=== PATIENT | male | born 1950 | race Caucasian/White ===

== ENCOUNTER 2017-03-24 14:00 | Inpatient (IN) | payer MEDICARE, OTHER ==
[2017-04-01] MEDS ORDERED: FAMOTIDINE 20MG TABLET PO ONE (06:00)
[2017-04-01] MEDS ORDERED: VANCOMYCIN HCL 1,000 MG in 0.9 % SODIUM CHLORIDE 250ML 250 ML IVPB ONE (06:00)
[2017-04-01] MEDS ORDERED: ACETAMINOPHEN 1,000 MG/100 ML BTL IV ONE (06:00)
[2017-04-01] MEDS ORDERED: MECLIZINE 25 MG TABLET PO ONE (06:00)
[2017-04-01] MEDS ORDERED: CEFAZOLIN 2 Gram 2 GM/50 ML BAG IVPB ONE (06:00)
[2017-04-01] MEDS ORDERED: METOCLOPRAMIDE 10 MG TABLET PO ONE (06:00)
[2017-04-01 09:19] LABS: HEMATOCRIT 49.3 % (42.0-52.0); HEMOGLOBIN 16.6 gm/dl (14.0-18.0); MEAN CORPUSCULAR HGB CONC 33.7 g/dl (32-36); MEAN PLATELET VOLUME 9.5 fl (7.4-10.4); PLATELET COUNT 267 K/uL (130-400); RED BLOOD COUNT 5.73 M/uL (4.40-5.70); RED CELL DISTRIBUTION WIDTH 15.3 % (11.5-14.5); WHITE BLOOD COUNT W/O DIFF 13.2 K/uL (4.2-12.2)
[2017-04-01 09:21] LABS: MEAN CORPUSCULAR HEMOGLOBIN 28.9 pg (27-33)
[2017-04-01 10:22] LABS: ABO GROUP A; ANTIBODY SCREEN NEGATIVE (NEGATIVE); RH TYPE POSITIVE
[2017-04-01] MEDS ORDERED: ACETAMINOPHEN W/ CODEINE 300MG/60MG TABLET PO PRN ×2 (13:12)
[2017-04-01] MEDS ORDERED: HYDROCODONE/APAP 10/325 TABLET PO PRN (13:12)
[2017-04-01] MEDS ORDERED: ONDANSETRON HCL IV 4 MG/2 ML VIAL IVP PRN (13:12)
[2017-04-01] MEDS ORDERED: NALOXONE 0.4 MG/1 ML VIAL IVP PRN (13:12)
[2017-04-01] MEDS ORDERED: ZOLPIDEM TARTRATE 5 MG TABLET PO PRN (13:12)
[2017-04-01] MEDS ORDERED: BISACODYL 10 MG SUPP RC PRN (13:12)
[2017-04-01] MEDS ORDERED: HYDROMORPHONE HCL 1 MG/ML CPJ IM PRN (13:12)
[2017-04-01] MEDS ORDERED: AL HYDROX/MAG HYDROX 30ML UD PO PRN (13:12)
[2017-04-01] MEDS ORDERED: ACETAMINOPHEN 325 MG TAB PO PRN (13:12)
[2017-04-01] MEDS ORDERED: DIPHENHYDRAMINE HCL 25 MG CAPSULE PO PRN (13:12)
[2017-04-01] MEDS ORDERED: KETOROLAC 30 MG/ML VIAL IVP PRN ×2 (13:12)
[2017-04-01] MEDS ORDERED: MAGNESIUM HYDROXIDE 30 ML UDC PO PRN (13:12)
[2017-04-01] MEDS ORDERED: HYDROMORPHONE HCL 2 MG/ML VIAL IM PRN (13:12)
[2017-04-01] MEDS ORDERED: TRANEXAMIC ACID 1,000 MG/10 ML ML IV ONE (15:11)
[2017-04-01] MEDS ORDERED: BUPIVACAINE 0.5% W/EPI MPF 30 ML VIAL IVP ONE (15:11)
[2017-04-01] MEDS ORDERED: MIDAZOLAM HCL 2MG/2ML VIAL IV ONE (15:19)
[2017-04-01] MEDS ORDERED: LIDOCAINE 2% MDV (20MG/ML) 20ML VIAL IV ONE (15:19)
[2017-04-01] MEDS ORDERED: FENTANYL PF 100MCG/2ML VIAL IV ONE (15:19)
[2017-04-01] MEDS ORDERED: DIPHENHYDRAMINE HCL IV 50 MG/ML VIAL IVP ONE (15:19)
[2017-04-01] MEDS ORDERED: PROPOFOL 10 MG/ML VIAL IV ONE (15:19)
[2017-04-01] MEDS ORDERED: EPHEDRINE SULFATE 50 MG/ML ML IV ONE (15:19)
[2017-04-01] MEDS: HYDROMORPHONE HCL 1 MG/ML CPJ IM PRN ×2 (16:17→19:43)
[2017-04-01] MEDS: POTASSIUM CHLORIDE/D5-0.9%NACL 20 MEQ/1,000 ML BAG IV SCH (16:23)
--- NOTE | 2017-04-01 16:23 | Rehab Evaluation ---
Patient Information - Patient Information Diagnosis: R knee OA Ordered Treatment: PT Evaluate and Treat Status: Initial Evaluation Surgery: Yes (R TKA) Date of Surgery: 04/01/17 Past Medical/Surgical Hx: PAST MEDICAL/SURGICAL HISTORY Past Surgical History left total knee replaced 2015; tonsillectomy; right carpal tunnel sx; colonoscopies. 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 The patient's home has 2 stairs at the enterance with one railing. The patient reports his bathroom has a regular tub/chair combination with a grab bar and a standard toilet with a grab bar. The patient has a 2 wheeled walker and a standard cane. The patient plans to go to a Rehab facility in [place] upon discharge from [facility].) Social History: Detail (The patient has a supportive spouse.) Precautions: [place], Other (WBAT on the R LE.) - Time With Patient Total Time Spent With Patient (Min): 25 Treatment Procedures: Detail (PT initial evaluation, gait training.) Subjective Information - Subjective Information Per Patient (The patient complained of an aching pain in R knee. The patient's pain did increase after ambulating.) Objective Data - Mental Status Patient Orientation: Oriented x3 - Visual Perception Appears within normal limits for therapeutic activities - ROM Not within normal limits (The patient's R knee AROM was not formally assessed secondary to pain complaints.) - Strength/Tone Not within normal limits (The patient's UE strength was not formally tested however patient's strength was functional. The patient's L LE strength was 4+ to 5/5. The patient's R LE strength was not tested secondary to status post surgery.) - Coordination Appears within normal limits for therapeutic activities - Bed Mobility Needs Assist (The patient was independent with supine to sit with use of trapeze , the patient required minimal PA of 1 to lift R LE with sit to supine. The patient was independent with scooting up in bed with use of trapeze.) - Transfers Independent (The patient was independent with sit to and from stand transfer.) - Balance Balance Sitting: Good Balance Standing: Fair (The patient required wheeled walker for support.) - Sensation Intact - Gait Detail (The patient ambulated with wheeled walker WBAT on the R LE with CG of 1 a distance of 30 feet x 1.) Therapy Assessment - Therapy Assessment Detail (The patient required CG for safety only for ambulation and required minimal assistance to lift R LE with sit to supine transfer. Feel the patient will progress well with mobility.) Problem List - Problem List Physical Therapy Problem List: Detail (1) Decreased R knee AROM 2) Decreased R LE strength 3) Assistance with bed mobility 4) Limited ambulation distance with wheeled walker and CG for safety) Goals - Goals Physical Therapy Goals: 1) The patient will ambulate independently with wheeled walker 150 feet WBAT on the R LE. 2) The patient will ambulate with supervision on 2 to 3 steps with use of railing. 3) The patient will be independent with bed mobility and all transfers. 4) The patient will be independent with HEP of LE strengthening and knee ROM exercises. Prognosis - Prognosis Good Plan - Plan Physical Therapy Plan: PT twice daily until inpatient goals are completed for gait training, transfer training, bed mobility and LE strengthening and ROM exercises.
[2017-04-01] MEDS: CEFAZOLIN 2 Gram 2 GM/50 ML BAG IVPB SCH (18:00)
[2017-04-01] MEDS: HYDROCODONE/APAP 10/325 TABLET PO PRN ×2 (18:02→21:59)
[2017-04-01] MEDS: DOCUSATE SODIUM 100 MG CAPSULE PO SCH (21:58)
[2017-04-02] MEDS: HYDROMORPHONE HCL 1 MG/ML CPJ IM PRN ×2 (00:18→22:01)
[2017-04-02] MEDS: POTASSIUM CHLORIDE/D5-0.9%NACL 20 MEQ/1,000 ML BAG IV SCH ×2 (00:23→13:26)
[2017-04-02] MEDS: HYDROCODONE/APAP 10/325 TABLET PO PRN ×5 (02:18→20:39)
[2017-04-02] MEDS: CEFAZOLIN 2 Gram 2 GM/50 ML BAG IVPB SCH ×2 (02:20→10:05)
[2017-04-02 06:43] LABS: HEMATOCRIT 45.4 % (42.0-52.0)
[2017-04-02 06:52] LABS: ANION GAP 9.5 (7-16); BLOOD UREA NITROGEN 17 mg/dL (9-20); CARBON DIOXIDE 30.5 mmol/L (22-30); CREATININE 0.9 mg/dL (0.66-1.25); EST GLOMERULAR FILTRATION RATE > 60 ml/min; GLUCOSE,RANDOM 179 mg/dL (70-110)
[2017-04-02] MEDS: DOCUSATE SODIUM 100 MG CAPSULE PO SCH ×2 (09:14→22:01)
[2017-04-02] MEDS: FERROUS SULFATE 325 MG TAB PO SCH (09:15)
[2017-04-02] MEDS: ASPIRIN 81 MG TABEC PO SCH (09:15)
[2017-04-02] MEDS: PATIENT OWN MED: SIMVASTATIN 40 MG PO SCH (09:16)
[2017-04-02] MEDS: PATIENT OWN MED: HYDROCHLOROTHIAZIDE 25 MG PO SCH (09:16)
[2017-04-02] MEDS: PATIENT OWN MED: METOPROLOL ER 100 MG PO SCH (09:16)
[2017-04-02] MEDS: RIVAROXABAN 10 MG TABLET PO SCH (09:17)
--- NOTE | 2017-04-02 10:45 | Rehab Evaluation ---
Patient Information - Patient Information Diagnosis: R knee OA Ordered Treatment: OT Evaluate and Treat Status: Initial Evaluation Surgery: Yes (R TKA) Date of Surgery: 04/01/17 Past Medical/Surgical Hx: PAST MEDICAL/SURGICAL HISTORY Past Surgical History left total knee replaced 2015; tonsillectomy; right carpal tunnel sx; colonoscopies. 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 Hx of Neuromuscular Disease Yes: left sided bells palsy-left side deficits PMH - GI Hx Gastrointestinal Disorders Yes PMH - Hx Genitourinary Disorders No PMH - Endocrine Hx Endocrine Disorders No Hx Diabetes No Hx Thyroid Disease No PMH - Musculoskeletal Hx Musculoskeletal Disorders Yes Hx Arthritis Yes: hands, ankles,knees,elbows PMH - Psych Hx Psychiatric Problems No PMH - Hematology/Oncology Hx Hematology/Oncology No Disorders Hx Blood Transfusion Reaction No Premorbid Status: Detail (Patient lives with spouse in a 1 story home with a basement, however the patient plans to live on the first floor. The patient's home has 2 stairs at the entrance with one railing. The patient reports his bathroom has a tub/shower combination with a removable grab bar and a standard toilet with a grab bar. He usually stands to shower. The patient has a 2 wheeled walker, straight cane, channel installer and commode which he doesn't use. Prior to surgery, he reports being Ind with all self cares, using the vacuum, loading/ unloading the mascara molder and grilling. The patient plans to go to a Rehab facility in [place] upon discharge from [facility].) Social History: Detail (The patient has a supportive spouse.) Precautions: [place], Other (WBAT on the R LE.) - Time With Patient Total Time Spent With Patient (Min): 35 Treatment Procedures: Detail (OT eval low complexity) Subjective Information - Subjective Information Per Patient Objective Data - Pain Pain Present: Yes (4/10 right knee pain) - Mental Status Patient Orientation: Oriented x3 - Visual Perception Appears within normal limits for therapeutic activities - ROM Within normal limits (Héctor UE AROM WNL) - Strength/Tone Within normal limits (Héctor UE MMT WNL) - Coordination Appears within normal limits for therapeutic activities - Bed Mobility Needs Assist (Pt reports he uses his cane to lift his right leg into bed, he required assist as he does not have his cane with him.) - Transfers Independent (Ind with sit to stand.) - Balance Balance Sitting: Good Balance Standing: Good - Sensation Intact - Gait Detail (Pt ambulating in the room with 2 wheeled walker and SBA.) - ADL's/IADL's Detail (Pt toileting with SBA, completing hygiene at sink in standing, able to demonstrate doffing and donning of shorts and slip on type slippers using modified dressing techniques.) Therapy Assessment - Therapy Assessment Detail (Pt presents with WNL UE function, Ind with LE dressing activities and requires min assist for bed mobility.) Problem List - Problem List Physical Therapy Problem List: Detail (1) Decreased R knee AROM 2) Decreased R LE strength 3) Assistance with bed mobility 4) Limited ambulation distance with wheeled walker and CG for safety) Occupational Therapy Problem List: Detail (No OT problems identified at this time.) Goals - Goals Physical Therapy Goals: 1) The patient will ambulate independently with wheeled walker 150 feet WBAT on the R LE. 2) The patient will ambulate with supervision on 2 to 3 steps with use of railing. 3) The patient will be independent with bed mobility and all transfers. 4) The patient will be independent with HEP of LE strengthening and knee ROM exercises. Occupational Therapy Goals: No OT goals identified at this time. Prognosis - Prognosis Good Plan - Plan Physical Therapy Plan: PT twice daily until inpatient goals are completed for gait training, transfer training, bed mobility and LE strengthening and ROM exercises. Occupational Therapy Plan: No further inpatient OT recommended at this time.
--- NOTE | 2017-04-02 10:47 | Physical Therapy Tx Note ---
Physical Therapy Tx Note - Treatment Note Tolerated: Good (Patient did not sleep well but pain is fairly controlled before he got out of bed. Able to walk all the way down the echeverria with FWW with CGA and WBAT (120 feet), down three steps then back up three steps and back to room.) Total Time Spent With Patient: 30 Physical Therapy Tx Note: Detail (Patient seen in room, sitting up in bed. Removed compressive stockings and cryocuff then supine to sit independently, ambulated to bathroom with FWW and SBA, used toilet independently then ambulated into echeverria about 120 feet to stairs, walked down three steps with CGA, rail and folded walker then back up steps and back to room. Nurse had placed recliner in patient's room so headed for recliner and patient performed exercises with body reclined back with good tolerance: heel slides, SLR, ankle pumps and quad sets. Replaced cryocuff on knee, IV plugged in and tray table and call light close.) Physical Therapy Problem List: Detail (1) Decreased R knee AROM 2) Decreased R LE strength 3) Assistance with bed mobility 4) Limited ambulation distance with wheeled walker and CG for safety) Physical Therapy Goals: 1) The patient will ambulate independently with wheeled walker 150 feet WBAT on the R LE. 2) The patient will ambulate with supervision on 2 to 3 steps with use of railing. 3) The patient will be independent with bed mobility and all transfers. 4) The patient will be independent with HEP of LE strengthening and knee ROM exercises. Prognosis: Good (Patient able to do steps today already with good technique, correct technique. Ambulating well with FWW.) Physical Therapy Plan: PT twice daily until inpatient goals are completed for gait training, transfer training, bed mobility and LE strengthening and ROM exercises.
--- NOTE | 2017-04-02 14:24 | Operative Note ---
DATE OF SURGERY: 04/01/2016 PREOPERATIVE DIAGNOSIS: End-stage arthrosis of the right knee. POSTOPERATIVE DIAGNOSIS: End-stage arthrosis of the right knee. OPERATION: Cemented right total knee arthroplasty using Jones and Nephew Jade II components with a size 6 Oxinium posterior stabilized femur, a size 6 stem tibia baseplate, a 9 mm posterior stabilized highly crosslinked tibial insert, and a 35 mm all plastic patella. Surgeon: Austin Maza MD Anesthesia: Spinal. PREPARATION: Chloraprep. INDIVIDUAL CONSIDERATIONS: None. LAMP MECHANIC: Mrs. Svetlana Potter PROCEDURE: The patient was taken to the operating room, placed supine on the operating room table. He had a successful induction of spinal anesthetic. The right lower extremity was prepped and draped in the usual fashion. The patient had midline approach to the knee. Limb was elevated, tourniquet was inflated to 250 mmHg. Sharp dissection carried down through skin and subcutaneous tissue. Small veins were coagulated with a Bovie. A medial arthrotomy was performed. The patella was everted and the knees was flexed. Patient had exposed bone in the medial and patellofemoral compartments and changes even laterally. Fat pad was resected, ACL was sacrificed, provisional anterior meniscectomies were performed. The capsule was released to the medial proximal tibia. The initial femoral senior safety support manager hole was then made freehand. The intramedullary femoral cutting jig was placed. It was cut in 7.0 degrees of valgus and adjusted for rotation and secured with pins for a 10 mm resection. The initial transverse cut was then made. Skin guide was placed for anterior and posterior senior safety support manager holes. It was found that a size 6 would be appropriate. The anterior and posterior cuts were placed. Osteophytes removed and a size 6 trial was placed and found to fit well. The tibia was brought forward and the remainder of the meniscal remnants removed with a Bovie. The extraarticular tibial cutting jig was placed. It was cut in neutral with a 3 degree AP slope. Care was taken to adjust the rotation and when making a cut, care was also taken to try to preserve the PCL. After cutting the tibia and removing osteophytes, it was found that a size 6 would be appropriate. It was adjusted for rotation and secured with pins. I then discovered the PCL was gone, so I had to go ahead and place the femoral box cutting jig on, ream out the box, and use the box osteotomes until posterior stabilized. After irrigation, tourniquet was let down briefly to get bleeders posteriorly and then placed back up again. The femoral trial was then placed with the 9 mm posterior stabilized insert. There was excellent motion and stability. Ligamentous balance and rotation alignment were thought to be normal. These trial components were removed. The patient had thick patella and roughly 9 mm of bone was removed with an oscillating saw. It was found that a large patella would be appropriate, and the 3 senior safety support manager holes were then drilled. The knee was then thoroughly irrigated out with pulsatile Betadine and saline to remove any visual or palpable debris. Bony surfaces were then dried. A size 6 stem tibia baseplate was cemented into place followed by cementing in the size 6 posterior stabilized Oxinium femoral implant followed by impacting the 9 mm posterior stabilized tibial insert followed by cementing the 35 mm all plastic patella. The implant surfaces were compressed, excess cement was removed, and after the cement had set, there was excellent motion and stability. Ligamentous balance, rotation, and alignment were thought to be normal and patellofemoral tracking was normal just doing a very limited lateral release. Again thorough irrigation with pulsatile Betadine and saline. Tourniquet was let down. Hemostasis was obtained with a Bovie. The periosteum and subcu and skin were infiltrated with 30 mL of 0.5% Marcaine with epinephrine. The capsule was then closed with a running #2 quill, subcu was closed with running 0 quill, skin was closed with running 2-0 quill. Then 1 g of tranexamic acid was mixed with 40 mL of saline and was injected into the knee through a sterile 18 joseph needle and a sterile bulky compressive Aquacel type dressing was applied. The patient tolerated the procedure well. Needle and sponge counts were correct. Estimated blood loss was minimal and he was taken back to recovery in good condition. There were no complications. CC: Dr. Murray WHITMORE
--- NOTE | 2017-04-02 14:27 | Physical Therapy Tx Note ---
Physical Therapy Tx Note - Treatment Note Tolerated: Good (Patient still sitting up in chair but ready to get up and walk. Doing better with weightbearing and pain control.) Total Time Spent With Patient: 15 Physical Therapy Tx Note: Detail (Patient seen in room, in recliner but able to place recliner safely in upright position in controlled manner to not strain knee. Sit to stand with SBA only, ambulated with FWW with WBAT into echeverria about 120 feet past nurses station then back to room. Wanted to lie down to rest as has been up all day so into bed with very little assist with right LE. Re- attached cryocuff, compressive stockings, pulled tray table close with call light. Talked about exercises to continue especially quad sets and heel slides.) Physical Therapy Problem List: Detail (1) Decreased R knee AROM 2) Decreased R LE strength 3) Assistance with bed mobility 4) Limited ambulation distance with wheeled walker and CG for safety) Physical Therapy Goals: 1) The patient will ambulate independently with wheeled walker 150 feet WBAT on the R LE. 2) The patient will ambulate with supervision on 2 to 3 steps with use of railing. 3) The patient will be independent with bed mobility and all transfers. 4) The patient will be independent with HEP of LE strengthening and knee ROM exercises. Prognosis: Good (Patient has passed all skills but since will be here tomorrow, we will see him as able for more gait training and exercises.) Physical Therapy Plan: PT twice daily until inpatient goals are completed for gait training, transfer training, bed mobility and LE strengthening and ROM exercises.
[2017-04-03] MEDS: HYDROCODONE/APAP 10/325 TABLET PO PRN ×6 (00:45→22:05)
[2017-04-03 06:16] LABS: HEMATOCRIT 38.2 % (42.0-52.0); HEMOGLOBIN 12.7 gm/dl (14.0-18.0)
[2017-04-03 06:28] LABS: ANION GAP 4.6 (7-16); BLOOD UREA NITROGEN 16 mg/dL (9-20); CARBON DIOXIDE 35.4 mmol/L (22-30); CREATININE 0.9 mg/dL (0.66-1.25); EST GLOMERULAR FILTRATION RATE > 60 ml/min; GLUCOSE,RANDOM 136 mg/dL (70-110)
[2017-04-03] MEDS: ASPIRIN 81 MG TABEC PO SCH (09:18)
[2017-04-03] MEDS: DOCUSATE SODIUM 100 MG CAPSULE PO SCH ×2 (09:18→22:05)
[2017-04-03] MEDS: RIVAROXABAN 10 MG TABLET PO SCH (09:18)
[2017-04-03] MEDS: FERROUS SULFATE 325 MG TAB PO SCH (09:18)
[2017-04-03] MEDS: PATIENT OWN MED: HYDROCHLOROTHIAZIDE 25 MG PO SCH (09:21)
[2017-04-03] MEDS: PATIENT OWN MED: METOPROLOL ER 100 MG PO SCH (09:22)
[2017-04-03] MEDS: PATIENT OWN MED: SIMVASTATIN 40 MG PO SCH (09:22)
--- NOTE | 2017-04-03 11:19 | Physical Therapy Tx Note ---
Physical Therapy Tx Note - Treatment Note Tolerated: Good Total Time Spent With Patient: 20 Physical Therapy Tx Note: Detail (Patient states 4/10 pain in right knee. Patient transferred sit to and from stand independently. Patient ambulated 180 feet with wheeled walker SBA x1. Patient performed the following exercises x10 reps each: quad sets, ankle pumps, assisted heel slides, SLR with assist, and hamstring sets. Patient tolerated treatment well. Patient displays decreased strength and endurance with quad sets, SLR with assist, and hamstring sets. Patient displays decreased knee flexion ROM with assisted heel slides. Patient was left reclined in chair with call light within reach.) Physical Therapy Problem List: Detail (1) Decreased R knee AROM 2) Decreased R LE strength 3) Assistance with bed mobility 4) Limited ambulation distance with wheeled walker and CG for safety) Physical Therapy Goals: 1) The patient will ambulate independently with wheeled walker 150 feet WBAT on the R LE. 2) The patient will ambulate with supervision on 2 to 3 steps with use of railing. 3) The patient will be independent with bed mobility and all transfers. 4) The patient will be independent with HEP of LE strengthening and knee ROM exercises. Prognosis: Good Physical Therapy Plan: PT twice daily until inpatient goals are completed for gait training, transfer training, bed mobility and LE strengthening and ROM exercises.
--- NOTE | 2017-04-03 16:23 | Physical Therapy Tx Note ---
Physical Therapy Tx Note - Treatment Note Tolerated: Good Total Time Spent With Patient: 35 Physical Therapy Tx Note: Detail (Patient states 3-12/30 pain in right knee. Patient transferred sit to and from stand independently. Patient ambulated 13 feet with wheeled walker SBA x1. Patient transferred sit to and from stand independently. Patient ambulated 290 feet with wheeled walker SBA x1. Patient performed the following exercises: seated marching x10, seated heel raises x15, seated toe raises x15, LAQ x10, hamstring sets x15, and seated heel slides x10. Patient tolerated treatment well. Patient displays decreased strength and endurance with seated marching, LAQ, hamstring sets, seated toe raises, and seated heel raises. Patient reports knee sore after treatment. Patient was left reclined in chair with call light within reach.) Physical Therapy Problem List: Detail (1) Decreased R knee AROM 2) Decreased R LE strength 3) Assistance with bed mobility 4) Limited ambulation distance with wheeled walker and CG for safety) Physical Therapy Goals: 1) The patient will ambulate independently with wheeled walker 150 feet WBAT on the R LE. 2) The patient will ambulate with supervision on 2 to 3 steps with use of railing. 3) The patient will be independent with bed mobility and all transfers. 4) The patient will be independent with HEP of LE strengthening and knee ROM exercises. Prognosis: Good Physical Therapy Plan: PT twice daily until inpatient goals are completed for gait training, transfer training, bed mobility and LE strengthening and ROM exercises.
[2017-04-04] MEDS: HYDROCODONE/APAP 10/325 TABLET PO PRN ×3 (01:43→11:04)
[2017-04-04] MEDS: FERROUS SULFATE 325 MG TAB PO SCH (11:03)
[2017-04-04] MEDS: DOCUSATE SODIUM 100 MG CAPSULE PO SCH (11:03)
[2017-04-04] MEDS: RIVAROXABAN 10 MG TABLET PO SCH (11:03)
[2017-04-04] MEDS: PATIENT OWN MED: METOPROLOL ER 100 MG PO SCH (11:06)
[2017-04-04] MEDS: PATIENT OWN MED: HYDROCHLOROTHIAZIDE 25 MG PO SCH (11:07)
[2017-04-04] MEDS: PATIENT OWN MED: SIMVASTATIN 40 MG PO SCH (11:08)
[2017-04-04] MEDS: ASPIRIN 81 MG TABEC PO SCH (11:15)
--- NOTE | 2017-04-04 14:21 | Discharge Summary ---
DATE OF ADMISSION: 04/01/2017 DATE OF DISCHARGE: 04/04/2017 DATE OF SURGERY: 04/01/2017 HISTORY: The patient is a delightful 66-year-old male who presents with end-stage arthrosis of his right knee. He was admitted after right total knee arthroplasty. Postoperatively, he did well. His hospital course was unremarkable. His discharge hemoglobin was 12.7 and did not require transfusion. The plan is to transfer him to Rehab. He will be given [place] for pain, and he will take a total of 15 days postoperatively of Xarelto for DVT prophylaxis, and then after that he will just continue on his normal 81 mg dose of aspirin. He should continue taking his low-dose aspirin even while he is on the Xarelto. That should not be a problem. After rehab, home PT and visiting nurse has been arranged through [facility] [place]. He should follow up in my office in 4 weeks. FINAL DIAGNOSIS/PRIMARY DIAGNOSIS: End-stage arthrosis of the right knee. SECONDARY DIAGNOSES: 1. Operative blood-loss anemia. 2. Hypertension, stable. 3. Dyslipidemia, stable. OPERATIONS AND PROCEDURES: Cemented right total knee arthroplasty. CC: Murray Ornelas MD MTDD
== END 2017-04-04 14:27 | DRG 470 ==
LOC: MEDSURG 04-01 09:02
PROVIDERS: ADMIT Orthopaedic Surgery; ATTEND Orthopaedic Surgery
PROC: 0SRC0J9 Replacement of Right Knee Joint with Synthetic Substitute, Cemented, Open Approach (ICD-10-PCS; principal; 2017-04-01 11:00)
DX: M17.11 Unilateral primary osteoarthritis, right knee (principal); I10 Essential (primary) hypertension; E78.00 Pure hypercholesterolemia, unspecified
CPT/HCPCS: 80048; 82947; 85014; 85018; 85027; 86850; 86900; 86901; 97110; 97116; 97165; 97530; J1170; J1200; J1885; J3480; J7050